=== PATIENT | female | born 2000 | race Caucasian/White ===

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

== ENCOUNTER 2022-05-14 08:55 | Inpatient (IN) ==
[2022-05-14] MEDS ORDERED: LIDOCAINE 1% LOCAL 20 ML VIAL INFIL PRN (10:55)
[2022-05-14] MEDS ORDERED: OXYTOCIN 30 UNITS/500 ML BAG IV PRN ×2 (10:55→23:28)
--- NOTE | 2022-05-14 11:07 | History & Physical Report ---
Date of Service May 14, 2022 Assessment & Plan (1) : (2) Elevated blood pressure affecting , antepartum: Plan 22 yo g1 at 39 2/7 wga presents in early labor Mildly elevated BPs noted, pt is asymptomatic. Will get labs Fetus cat 1 Labor - manage expectantly GBS neg Epidural PRN History of Present Illness Chief Complaint: Contractions Primary Care Provider: Javed Wagner 22 yo G1 at 39 2/7 wga presents w/ ctx increasing in frequency and intensity. +FM; denies LOF, VB. Had some bloody show earlier this AM. Initially checked around 930 and was 3/70/-2, now progressed to 4cm. PNI: Ectopic atrial tachy s/p cardiology consult, no acute intervention stable abnormal echo - needs echo before d/c G1 regular cycles denies hx STIs Allergies Allergy/AdvReac Type Severity Reaction Status Date / Time amoxicillin Allergy Unknown RASH Verified 05/14/22 09:06 cephalexin Allergy Unknown HIVES/RASH Verified 05/14/22 09:06 nystatin Allergy Unknown HIVES/RASH Verified 05/14/22 09:06 TYLENOL WITH CODEINE Allergy Unknown HIVES/RASH Uncoded 05/14/22 09:06 Home Medications Medication Instructions Recorded Confirmed Type prenat.vits,beverley,chn-wufc-yddzp 1 tab PO DAILY 10/27/21 05/14/22 History ferrous sulfate 325 mg (65 mg 325 mg PO DAILY 05/14/22 05/14/22 History iron) tablet Patient History Medical History (Updated 05/14/22 @ 11:05 by Kiana Solis MD) Atrial ectopic tachycardia Family History (Updated 10/27/21 @ 11:15 by Dina Wang) Aunt Diabetes Ovarian cancer Mother Lymphoma Grandfather Cancer Other Dyslipidemia Social History (Updated 10/27/21 @ 11:07 by Dina Wang) Smoking Status: Never smoker Hx Alcohol Use: No Hx Substance Use: No Preferred Language: Kosovan Communication Ability: Effective Education Rn Required: No Beliefs That Will Affect Care: None marital status: Single marital status details: no contact Current Living Situation: Alone Current Living Situation Comment: lives alone, 2 dogs, 2 cats, someone changes litter for pt current occupational status: unemployed Feels Safe at Home: Yes Assistive Devices: None Physical Exam Genitourinary: OB Exam Abdomen: + vertex and + estimated weight (7-8) Manual OB Exam: + cervical dilation 4 cm, + cervical effacement 70% and + station -2 OB Exam Monitor Tracing: + external FHT monitor used, + external uterine monitor used (q4-5) and + category I (120/mod/+accel/-decel) Results & Data ([facility]) Vital Signs (Past 12 Hours) Vital Signs Temp Pulse Resp BP 05/14/22 10:55 87 05/14/22 10:55 139/100 05/14/22 09:53 90 05/14/22 09:53 133/93 05/14/22 09:22 103 H 05/14/22 09:22 139/92 05/14/22 09:13 107 H 05/14/22 09:13 137/97 05/14/22 09:01 20 05/14/22 09:01 98.2 F 20 05/14/22 09:02 98 H 142/92 H Laboratory Results OB Labs: Blood Type A Positive 11/02/21 Antibody Screen NEGATIVE 11/02/21 Hemoglobin 10.5 g/dl (12.0-16.0) L 04/17/22 Hematocrit 31.5 % (34.1-44.9) L 04/17/22 Mean Corpuscular Volume 83.8 fL (80.0-100.0) 04/17/22 Platelet Count 138 K/uL (130-400) 04/17/22 Rubella IgG Antibody Immune (Immune) 11/02/21 Rapid Plasma Reagin Nonreactive (Nonreactive) 02/24/22 Hepatitis B Surface Antigen. NON-REACTIVE (NON-REACTIVE) 11/02/21 Hepatitis C Antibody (EIA) NON-REACTIVE (NON-REACTIVE) 11/02/21 HIV (1&2) Ag and Ab Confirmation NON-REACTIVE (NON-REACTIVE) 11/02/21 Glucose 1 Hour 50 gm Load 135 mg/dl (70-130) H 02/24/22 Maternal Serum Alpha Fetoprotein 32.2 ng/mL 11/30/21 OB Optional Labs: Chlamydia trachomatis RNA NOT DETECTED (NOT DETECTED) 11/02/21 Neisseria gonorrhoeae RNA NOT DETECTED (NOT DETECTED) 11/02/21 Alpha Fetoprotein Triple Screen SEE NOTE 11/30/21 low risk cfdna neg cf/sma GBS neg Diagnostic Findings Post/fundal plac Coding Level of Care Code None Diagnoses Z34.90 Elevated blood pressure affecting , antepartum O16.9
[2022-05-14 12:00] LABS: Hematocrit (blood only) 35.1 % (37.0-47.0); Hemoglobin 12.2 g/dl (12.0-16.0); Mean Corpuscular Hemoglobin 28.6 pg (25.0-34.0); Mean Corpuscular Hgb Conc 34.8 g/dL (32.0-36.0); Mean Corpuscular Volume 82.4 fL (80.0-100.0); Mean Platelet Volume 12.1 fL (9.4-12.4); Platelet Count 124 K/uL (130-400); RDW Coefficient of Variation 16.6 % (11.5-14.5); RDW Standard Deviation 49.1 fL (36.4-46.3); Red Blood Count 4.26 M/uL (4.20-5.40); White Blood Count 11.82 K/ul (4.8-10.8)
[2022-05-14 12:59] LABS: Albumin Level 3.4 gm/dl (3.4-5.0); Anion Gap 9 (3-11); Bilirubin,Total 0.3 mg/dl (0.2-1.0); Carbon Dioxide 21 mmol/L (21-32); Chloride 107 mmol/L (98-107); Potassium 3.9 mmol/L (3.5-5.1); Sodium 137 mmol/L (136-145)
[2022-05-14 13:05] LABS: Alanine Aminotransferase 14 U/L (7-52); Albumin Globulin Ratio 1.3 (0.9-2); Alkaline Phosphatase 157 U/L (34-104); Aspartate Aminotransferase 16 U/L (13-39); BUN Creatinine Ratio 20.4 (10-20); Blood Urea Nitrogen 11 mg/dl (6-23); Creatinine Clr Calc Pharmacy 159.8 ml/min; Est GFR (African American) > 150.0 ml/min; Est GFR (Non-African American) 132.1 ml/min; Globulin 2.7 gm/dl (2.5-4.0); Glucose 69 mg/dl (70-99(Fasting)); Total Protein 6.1 gm/dl (6.0-8.3)
[2022-05-14] MEDS: LACTATED RINGER'S 1,000 ML IV PRN ×3 (13:22→22:28)
--- NOTE | 2022-05-14 13:26 | Labor Progress Brief Note ---
Date of Service May 14, 2022 Subjective contractions more painful Assessment & Plan (1) : (2) Elevated blood pressure affecting , antepartum: Plan 22 yo g1 at 39 2/7 wga admitted in labor Mildly elevated BPs improved, last normotensive. Labs still pending due to issue w/ lab system but results thus far reassuring Fetus cat 1 Labor - progress noted, offered arom and pt amenable, tolerated well. Continue to monitor GBS neg Epidural PRN Admission and Anticipated Discharge Date Admission Date: May 14, 2022 Physical Exam Genitourinary: Manual OB Exam: + cervical dilation (4-5), + cervical effacement 70%, + station -2 and + amniotic fluid (arom clear) OB Exam Monitor Tracing: + external FHT monitor used, + external uterine monitor used (q4-5) and + category I (120/mod/+accel/-decel) Results & Data ([facility]) Vital Signs (Past 12 Hours) Vital Signs Temp Pulse Resp BP 05/14/22 11:50 97.7 F 82 20 05/14/22 11:50 134/87 05/14/22 10:55 87 05/14/22 10:55 139/100 05/14/22 09:53 90 05/14/22 09:53 133/93 05/14/22 09:22 103 H 05/14/22 09:22 139/92 05/14/22 09:13 107 H 05/14/22 09:13 137/97 05/14/22 09:01 20 05/14/22 09:01 98.2 F 20 05/14/22 09:02 98 H 142/92 H Coding Level of Care Code None Diagnoses Z34.90 Elevated blood pressure affecting , antepartum O16.9
[2022-05-14] MEDS ORDERED: ePHEDrine sulfate 50 MG/ML AMP ONE (13:30)
[2022-05-14] MEDS ORDERED: fentaNYL citrate 100 MCG/2 ML VIAL ONE (13:30)
[2022-05-14] MEDS ORDERED: SODIUM CHLORIDE 0.9% INJ 10 ML VIAL ONE (13:31)
[2022-05-14] MEDS ORDERED: fentaNYL 2MCG/ML ROPIVACAINE 1.25MG/ML 100 ML BAG EPI ONE (13:31)
[2022-05-14] MEDS ORDERED: LIDOCAINE 2%/EPINEPHRINE 1:200,000 20 ML SDV ONE (13:31)
[2022-05-14] MEDS ORDERED: BUPIVACAINE 0.25% 30 ML VIAL ONE (13:31)
[2022-05-14 13:45] LABS: Total Protein Urine Random 13.6 mg/dl (0-11.9)
[2022-05-14] MEDS ORDERED: PROMETHAZINE HCL 25 MG in SODIUM CHLORIDE 0.9% 50 ML IV PRN (13:46)
[2022-05-14] MEDS ORDERED: METOCLOPRAMIDE HCL 20 MG in SODIUM CHLORIDE 0.9% 50 ML IV PRN (13:46)
[2022-05-14] MEDS ORDERED: NALBUPHINE HCL INJ 10 MG/ML AMP IV PRN (13:46)
[2022-05-14] MEDS ORDERED: ePHEDrine sulfate 50 MG/ML AMP IV PRN (13:46)
[2022-05-14] MEDS ORDERED: ONDANSETRON INJ 2 MG/ML 2 ML VIAL IV PRN (13:46)
[2022-05-14] MEDS ORDERED: NALOXONE HCL 1 MG in SODIUM CHLORIDE 0.9% 1000ML 1,000 ML IV PRN (13:46)
[2022-05-14] MEDS ORDERED: diphenhydrAMINE 50 MG/ML VIAL IV PRN (13:46)
[2022-05-14] MEDS ORDERED: NALOXONE HCL 0.4 MG/1 ML VIAL/CARP IV PRN (13:46)
[2022-05-14] MEDS ORDERED: fentaNYL 2MCG/ML ROPIVACAINE 1.25MG/ML 100 ML BAG EPI PRN (13:46)
--- NOTE | 2022-05-14 13:46 | Anesthesiology Consultation ---
Date of Service May 14, 2022 Assessment & Plan Chart Review Chart Review: Acceptable Risk for Labor Epidural Consults Requested none ASA ASA2 Proposed Anesthesia Anesthesia Type: Labor Epidural Risk / Benefits Reviewed With: PT / POA / Parent / Guardian, Accepts Plan and Informed Consent Obtained History Height/Weight Height: 5 ft 3 in Weight: 78.925 kg Allergies Allergy/AdvReac Type Severity Reaction Status Date / Time amoxicillin Allergy Unknown RASH Verified 05/14/22 09:06 cephalexin Allergy Unknown HIVES/RASH Verified 05/14/22 09:06 nystatin Allergy Unknown HIVES/RASH Verified 05/14/22 09:06 TYLENOL WITH CODEINE Allergy Unknown HIVES/RASH Uncoded 05/14/22 09:06 Medications Home Medications Medication Instructions Recorded Confirmed Last Taken prenat.vits,beverley,pza-yizr-qqerw 1 tab PO DAILY 10/27/21 05/14/22 05/13/22 18:00 ferrous sulfate 325 mg (65 mg 325 mg PO DAILY 05/14/22 05/14/22 05/13/22 18:00 iron) tablet Active Medications Generic Name Dose Route Start Last Admin Trade Name Freq PRN Reason Stop Dose Admin Lactated Ringer's 1,000 mls @ 125 mls/hr 05/14/22 10:55 05/14/22 13:22 Lr IV 05/16/22 10:54 999 mls/hr .Q8H PRN Administration L&D Protocol Protocol NPO Date Last Intake of Fluids: 05/14/22 Time Last Intake of Fluids: 12:30 Date Last Intake of Solids: 05/14/22 Time Last Intake of Solids: 07:30 Past Medical History Medical History Atrial ectopic tachycardia Exercise / Class Metabolic Activity II 4-5 Yardwork/Stairs/Walk up hill Past Family History Family History Aunt Ovarian cancer Diabetes Mother Lymphoma Hypertension Grandfather Cancer Father Hypertension Other Dyslipidemia Past Anesthesia History No Hx of Anesthesia Complications and No Family Hx of Anesthesia Complications History of PONV No Hx of PONV and No Hx of Motion Sickness Social History Smoking Status: Never smoker Hx Alcohol Use: No Hx Substance Use: No Physical Exam Vital Signs Last Vital Signs Temp 36.5 C 05/14/22 11:50 Pulse 82 05/14/22 11:50 Resp 20 05/14/22 11:50 BP 134/87 05/14/22 11:50 ENMT Mouth: no TMJ abnormality Thyromental Distance: > or= 3.5 Finger Breadths Mallampati Class: II Neck normal visual inspection and trachea midline; neck extension not limited Respiratory normal respiratory effort Auscultation: lungs clear to auscultation bilaterally Cardiovascular Rate/Rhythm: regular rate and regular rhythm Heart Sounds: no murmur Musculoskeletal Spine: normal cervical ROM Extremities: full ROM of extremities Neurologic moves all extremities Psychiatric Orientation: alert and oriented x 3 Testing Laboratory Results 05/14/22 11:38 05/14/22 11:38
[2022-05-14 13:51] LABS: Creatinine Urine Random 65.3 mg/dl; Protein Creatinine Ratio Urine 0.2 (0-0.2)
--- NOTE | 2022-05-14 17:08 | Labor Progress Brief Note ---
Date of Service May 14, 2022 Subjective Comfortable w/ epidural Assessment & Plan (1) : (2) Elevated blood pressure affecting , antepartum: Plan 22 yo g1 at 39 2/7 wga admitted in labor Mildly elevated BPs on admit but now normal, labs were wnl Fetus cat 1 Labor - good progress, continue expectant management GBS neg Epidural in place Admission and Anticipated Discharge Date Admission Date: May 14, 2022 Physical Exam Genitourinary: Manual OB Exam: + cervical dilation 7 cm, + cervical effacement 90% and + station 0 OB Exam Monitor Tracing: + external FHT monitor used, + external uterine monitor used (q3-5) and + category I (120/mod/+accel/-decel) Results & Data ([facility]) Vital Signs (Past 12 Hours) Vital Signs Temp Pulse Resp BP Pulse Ox 05/14/22 16:59 97.5 F L 16 05/14/22 16:02 98.6 F 20 05/14/22 17:05 99 05/14/22 17:05 76 05/14/22 17:00 100 05/14/22 17:00 69 05/14/22 17:01 82 05/14/22 17:01 132/82 05/14/22 16:55 100 05/14/22 16:55 82 05/14/22 16:50 100 05/14/22 16:50 71 05/14/22 16:45 100 05/14/22 16:45 72 05/14/22 16:44 72 05/14/22 16:44 111/67 05/14/22 16:40 100 05/14/22 16:40 68 05/14/22 16:35 100 05/14/22 16:35 63 05/14/22 16:30 100 05/14/22 16:30 77 05/14/22 16:29 60 05/14/22 16:29 20 115/68 05/14/22 16:25 100 05/14/22 16:25 72 05/14/22 16:20 100 05/14/22 16:20 70 05/14/22 16:15 100 05/14/22 16:15 80 05/14/22 16:15 93 H 05/14/22 16:15 112/68 05/14/22 16:10 100 05/14/22 16:10 76 05/14/22 16:05 99 05/14/22 16:05 75 05/14/22 16:00 98 05/14/22 16:00 65 05/14/22 16:00 106/64 05/14/22 15:55 98 05/14/22 15:55 71 05/14/22 15:50 99 05/14/22 15:50 69 05/14/22 15:45 98 05/14/22 15:45 97 H 05/14/22 15:44 84 05/14/22 15:44 121/72 05/14/22 15:40 98 05/14/22 15:40 82 05/14/22 15:35 98 05/14/22 15:35 82 05/14/22 15:31 81 05/14/22 15:31 119/73 05/14/22 15:30 97 05/14/22 15:30 78 05/14/22 15:25 96 05/14/22 15:25 73 05/14/22 15:20 95 05/14/22 15:20 76 05/14/22 15:15 98 05/14/22 15:15 74 05/14/22 15:14 82 05/14/22 15:14 113/75 05/14/22 15:10 97 05/14/22 15:10 75 05/14/22 15:05 97 05/14/22 15:05 75 05/14/22 15:01 85 05/14/22 15:01 98.1 F 16 123/77 05/14/22 15:00 98 05/14/22 15:00 78 05/14/22 14:55 97 05/14/22 14:55 76 05/14/22 14:50 97 05/14/22 14:50 74 05/14/22 14:45 98 05/14/22 14:45 85 05/14/22 14:44 79 05/14/22 14:44 127/77 05/14/22 14:40 98 05/14/22 14:40 79 05/14/22 14:35 99 05/14/22 14:35 87 05/14/22 14:30 98 05/14/22 14:30 84 05/14/22 14:31 84 05/14/22 14:31 16 124/78 05/14/22 14:25 98 05/14/22 14:25 90 05/14/22 14:20 98 05/14/22 14:20 85 05/14/22 14:15 98 05/14/22 14:15 79 05/14/22 14:14 83 05/14/22 14:14 131/88 05/14/22 14:12 81 05/14/22 14:12 130/83 05/14/22 14:10 98 05/14/22 14:10 90 05/14/22 14:10 90 05/14/22 14:10 122/79 05/14/22 14:08 85 05/14/22 14:08 132/87 05/14/22 14:05 99 05/14/22 14:05 90 05/14/22 14:05 138/89 05/14/22 14:04 90 05/14/22 14:04 135/83 05/14/22 14:00 100 05/14/22 14:00 96 H 05/14/22 13:48 102 H 05/14/22 13:48 98.2 F 20 153/97 H 05/14/22 11:50 97.7 F 82 20 05/14/22 11:50 134/87 05/14/22 10:55 87 05/14/22 10:55 139/100 05/14/22 09:53 90 05/14/22 09:53 133/93 05/14/22 09:22 103 H 05/14/22 09:22 139/92 05/14/22 09:13 107 H 05/14/22 09:13 137/97 05/14/22 09:01 20 05/14/22 09:01 98.2 F 20 05/14/22 09:02 98 H 142/92 H Coding Level of Care Code None Diagnoses Z34.90 Elevated blood pressure affecting , antepartum O16.9
--- NOTE | 2022-05-14 23:25 | Delivery Summary ---
Vaginal Delivery Summary Date of Service May 14, 2022 Vaginal Delivery Summary and 2nd Degree LAC PREOPERATIVE DIAGNOSIS: 1. Single intrauterine at 39 2/7 wga 2. Labor 3. Abnormal echo POSTOPERATIVE DIAGNOSIS: 1. Single intrauterine at 39 2/7 wga 2. Labor 3. Abnormal echo 4. Delivered PROCEDURE: 1. Normal spontaneous vaginal delivery. SURGEON: Kiana Solis MD ANESTHESIA: Epidural. ESTIMATED BLOOD LOSS: 300 mL FLUIDS: Continuous LR. URINE OUTPUT: None. COMPLICATIONS: None. CONDITION: Stable. INDICATIONS: 22 yo G1 at 39 2/7 wga presented to L&D with contractions increasing in frequency and intensity. She was initially 3cm and progressed to 4cm and was admitted. She underwent AROM and received an epidural for pain control. She continued to progress spontaneously to complete and desired to push. FINDINGS: A viable male infant, weight pending with Apgars of 8 and 9 at 1 and 5 minutes respectively. SPECIMEN: Cord blood OPERATIVE REPORT: The patient progressed to 10 cm, 100% effaced and +2 station, pushed over intact perineum with anesthesia to deliver a viable male infant, weight and Apgars as above. Head of delivered in DIANE position. Loose nuchal/body cord was noted and delivered through. Body and shoulders were delivered without difficulty. was delivered to maternal abdomen and nursing staff. Delayed cord clamping was performed for 60 seconds. Cord was clamped and cut. Cord blood was obtained. Placenta delivered spontaneously intact with 3-vessel cord. IV oxytocin and fundal massage were given for excellent hemostasis. Vagina, cervix, perineum, and placenta were inspected. A second degree laceration was noted and repaired using 3-0 vicryl and there was excellent hemostasis. Sponge and needle counts correct x2. No sponges were left behind. Mother and stable in immediate period. [facility] [place] Vaginal Delivery Charge Vaginal Delivery Codes: 97603 global code for the antepartum, delivery, and post- Delivery Type Details: and 2nd Degree LAC
[2022-05-14] MEDS ORDERED: ACETAMINOPHEN 325 MG TAB PO PRN (23:28)
[2022-05-14] MEDS ORDERED: DIPHTHERIA/TETANUS/PERTUSSIS 0.5mL SYR/VIAL (Age 7+yrs) IM ONE (23:28)
[2022-05-14] MEDS ORDERED: HYDROCORTISONE ACETATE 25 MG SUPP PR PRN (23:28)
[2022-05-14] MEDS ORDERED: BENZOCAINE 20% AER SPR 82.5 GM CAN EXT PRN (23:28)
[2022-05-15] MEDS: IBUPROFEN 600 MG TAB PO PRN ×4 (01:15→19:54)
[2022-05-15] MEDS: DOCUSATE SODIUM 100 MG CAP PO SCH ×2 (07:36→19:53)
[2022-05-15] MEDS: PRENATAL VITAMIN 1 TAB PO SCH (07:36)
[2022-05-15] MEDS: FERROUS SULFATE 325 MG TAB PO SCH (07:36)
--- NOTE | 2022-05-15 07:51 | Obstetrical Progress Note ---
Date of Service May 15, 2022 Assessment & Plan (1) : 22 yo PP1 from , doing well -Meeting all pp milestones -A+/rubella immune/ -f/u 6 weeks for appt, continue routine pp care Subjective Ambulation: ambulating normally Voiding: no voiding problems Passing Gas:: Yes Diet Tolerance:: regular diet Lochia:: Small Feeding Type:: breast feeding Pain well managed with medication Review of Systems Denies fevers, chills, n/v, RETANA, CP, SOB Physical Exam Constitutional WD/WN, vitals as above no acute distress Respiratory normal respiratory effort, lungs clear to auscultation Cardiovascular RRR, no murmur, no edema Gastrointestinal (Abdomen) Percussion/Palpation: abdomen soft; abdomen nontender fundus firm at umbilicus and NT Musculoskeletal BLE symmetric, nonerythematous, nontender Results & Data ([facility]) Vital Signs (Past 12 Hours) Vital Signs Temp Pulse Pulse Resp BP BP Pulse Ox 05/15/22 07:36 97.3 F L 58 L 18 105/64 97 05/15/22 05:23 98.1 F 72 18 117/68 05/15/22 02:00 98.1 F 20 128/64 05/15/22 01:15 99 H 18 132/79 05/15/22 00:45 100 H 20 130/84 05/15/22 00:15 96 H 20 117/72 05/15/22 00:00 93 H 20 125/86 05/14/22 23:45 103 H 18 124/85 05/14/22 23:30 103 H 18 124/85 05/14/22 23:15 103 H 18 124/85 05/14/22 23:15 98.8 F 20 05/15/22 01:14 99 H 132/79 05/15/22 00:59 85 118/77 05/15/22 00:44 100 H 130/84 05/15/22 00:29 91 H 116/85 05/15/22 00:14 96 H 117/72 05/14/22 23:59 93 H 05/14/22 23:59 125/86 05/14/22 23:44 93 H 05/14/22 23:44 123/80 05/14/22 23:29 103 H 05/14/22 23:29 124/85 01/28/23 23:15 99 05/14/22 23:15 99 H 05/14/22 23:14 96 H 05/14/22 23:14 119/77 05/14/22 23:10 98 05/14/22 23:10 98 H 05/14/22 23:02 18 05/14/22 23:02 18 05/14/22 23:05 98 05/14/22 23:05 115 H 05/14/22 23:00 99 05/14/22 23:00 114 H 05/14/22 22:55 99 05/14/22 22:55 100 H 05/14/22 22:50 95 05/14/22 22:50 123 H 05/14/22 22:48 85 L 05/14/22 22:48 125 H 05/14/22 22:45 100 05/14/22 22:45 115 H 05/14/22 22:44 116 H 05/14/22 22:44 132/78 05/14/22 22:40 100 05/14/22 22:40 81 05/14/22 22:35 99 05/14/22 22:35 94 H 05/14/22 22:32 85 L 05/14/22 22:32 100 H 05/14/22 22:30 100 05/14/22 22:30 94 H 05/14/22 22:30 114/67 05/14/22 22:26 100 H 05/14/22 22:26 120/72 05/14/22 22:25 93 05/14/22 22:25 122 H 05/14/22 22:20 99 05/14/22 22:20 121 H 05/14/22 22:16 117 H 05/14/22 22:16 126/84 05/14/22 22:15 100 05/14/22 22:15 122 H 05/14/22 22:10 100 05/14/22 22:10 116 H 05/14/22 22:05 100 05/14/22 22:05 78 05/14/22 22:00 18 05/14/22 22:00 18 05/14/22 22:00 99 05/14/22 22:00 75 05/14/22 21:55 99 05/14/22 21:55 89 05/14/22 21:50 100 05/14/22 21:50 77 05/14/22 21:45 100 05/14/22 21:45 73 05/14/22 21:44 74 05/14/22 21:44 120/85 05/14/22 21:40 100 05/14/22 21:40 73 05/14/22 21:35 100 05/14/22 21:35 72 05/14/22 21:30 18 05/14/22 21:30 18 05/14/22 21:30 100 05/14/22 21:30 83 05/14/22 21:30 125/84 05/14/22 21:25 100 05/14/22 21:25 71 05/14/22 21:20 100 05/14/22 21:20 66 05/14/22 21:15 100 05/14/22 21:15 77 05/14/22 21:15 124/80 05/14/22 21:00 18 05/14/22 21:00 98.1 F 18 05/14/22 21:10 100 05/14/22 21:10 102 H 05/14/22 21:05 100 05/14/22 21:05 99 H 05/14/22 21:00 100 05/14/22 21:00 84 05/14/22 20:59 83 05/14/22 20:59 114/72 05/14/22 20:55 100 05/14/22 20:55 69 05/14/22 20:50 100 05/14/22 20:50 70 05/14/22 20:45 100 05/14/22 20:45 69 05/14/22 20:44 76 05/14/22 20:44 116/76 05/14/22 20:40 100 05/14/22 20:40 71 05/14/22 20:35 100 05/14/22 20:35 79 05/14/22 20:30 18 05/14/22 20:30 18 05/14/22 20:30 100 05/14/22 20:30 74 05/14/22 20:29 71 05/14/22 20:29 115/68 05/14/22 20:25 100 05/14/22 20:25 67 05/14/22 20:20 100 05/14/22 20:20 77 05/14/22 20:00 18 05/14/22 20:00 18 05/14/22 20:15 100 05/14/22 20:15 75 05/14/22 20:14 104 H 05/14/22 20:14 115/72 05/14/22 20:10 100 05/14/22 20:10 103 H 05/14/22 20:05 100 05/14/22 20:05 89 05/14/22 20:00 100 05/14/22 20:00 93 H 05/14/22 19:59 79 05/14/22 19:59 126/86 05/14/22 19:55 100 05/14/22 19:55 78 05/14/22 19:50 100 05/14/22 19:50 82 O2 Del Method 05/15/22 07:36 Room Air 05/15/22 05:23 05/15/22 02:00 05/15/22 01:15 05/15/22 00:45 05/15/22 00:15 05/15/22 00:00 05/14/22 23:45 05/14/22 23:30 05/14/22 23:15 05/14/22 23:15 05/15/22 01:14 05/15/22 00:59 05/15/22 00:44 05/15/22 00:29 05/15/22 00:14 05/14/22 23:59 05/14/22 23:59 05/14/22 23:44 05/14/22 23:44 05/14/22 23:29 05/14/22 23:29 05/14/22 23:15 05/14/22 23:15 05/14/22 23:14 05/14/22 23:14 05/14/22 23:10 05/14/22 23:10 05/14/22 23:02 05/14/22 23:02 05/14/22 23:05 05/14/22 23:05 05/14/22 23:00 05/14/22 23:00 05/14/22 22:55 05/14/22 22:55 05/14/22 22:50 05/14/22 22:50 05/14/22 22:48 05/14/22 22:48 05/14/22 22:45 05/14/22 22:45 05/14/22 22:44 05/14/22 22:44 05/14/22 22:40 05/14/22 22:40 05/14/22 22:35 05/14/22 22:35 05/14/22 22:32 05/14/22 22:32 05/14/22 22:30 05/14/22 22:30 05/14/22 22:30 05/14/22 22:26 05/14/22 22:26 05/14/22 22:25 05/14/22 22:25 05/14/22 22:20 05/14/22 22:20 05/14/22 22:16 05/14/22 22:16 05/14/22 22:15 05/14/22 22:15 05/14/22 22:10 05/14/22 22:10 05/14/22 22:05 05/14/22 22:05 05/14/22 22:00 05/14/22 22:00 05/14/22 22:00 05/14/22 22:00 05/14/22 21:55 05/14/22 21:55 05/14/22 21:50 05/14/22 21:50 05/14/22 21:45 05/14/22 21:45 05/14/22 21:44 05/14/22 21:44 05/14/22 21:40 05/14/22 21:40 05/14/22 21:35 05/14/22 21:35 05/14/22 21:30 05/14/22 21:30 05/14/22 21:30 05/14/22 21:30 05/14/22 21:30 05/14/22 21:25 05/14/22 21:25 05/14/22 21:20 05/14/22 21:20 05/14/22 21:15 05/14/22 21:15 05/14/22 21:15 05/14/22 21:00 05/14/22 21:00 05/14/22 21:10 05/14/22 21:10 05/14/22 21:05 05/14/22 21:05 05/14/22 21:00 05/14/22 21:00 05/14/22 20:59 05/14/22 20:59 05/14/22 20:55 05/14/22 20:55 05/14/22 20:50 05/14/22 20:50 05/14/22 20:45 05/14/22 20:45 05/14/22 20:44 05/14/22 20:44 05/14/22 20:40 05/14/22 20:40 05/14/22 20:35 05/14/22 20:35 05/14/22 20:30 05/14/22 20:30 05/14/22 20:30 05/14/22 20:30 05/14/22 20:29 05/14/22 20:29 05/14/22 20:25 05/14/22 20:25 05/14/22 20:20 05/14/22 20:20 05/14/22 20:00 05/14/22 20:00 05/14/22 20:15 05/14/22 20:15 05/14/22 20:14 05/14/22 20:14 05/14/22 20:10 05/14/22 20:10 05/14/22 20:05 05/14/22 20:05 05/14/22 20:00 05/14/22 20:00 05/14/22 19:59 05/14/22 19:59 05/14/22 19:55 05/14/22 19:55 05/14/22 19:50 05/14/22 19:50
--- NOTE | 2022-05-15 08:21 | Anesthesia Procedure Note ---
Date of Service May 15, 2022 Anesthesia Post Epidural Note Vital Signs Vital Signs: Temp Pulse Resp BP Pulse Ox O2 Del Method 36.3 C L 58 L 18 105/64 97 05/15/22 07:36 05/15/22 07:36 05/15/22 07:36 05/15/22 07:36 05/15/22 07:36 05/15/22 07:36 Pain Intensity Abdomen: Pain Intensity: 1 Notes Mental Status: alert / awake / arousable and participated in evaluation Nausea / Vomiting: adequately controlled Pain: adequately controlled Airway Patency, RR, SpO2: stable & adequate BP & HR: stable & adequate Hydration State: stable & adequate Neuraxial Anesthesia: was administered and sensory block resolved Anesthetic Complications: no major complications apparent and Pt Satisfied with anesthetic care Epidural: Removed without complications and With tip intact
[2022-05-15] MEDS ORDERED: bisacodyL 5 MG TABEC PO SCH (20:00)
[2022-05-16] MEDS ORDERED: bisacodyL 10 MG SUPP PR PRN
[2022-05-16] MEDS: IBUPROFEN 600 MG TAB PO PRN ×2 (03:41→08:17)
--- NOTE | 2022-05-16 05:45 | Obstetrical Progress Note ---
Date of Service <Lilianetory MeredithDO - Last Filed: 05/16/22 06:54> May 16, 2022 Assessment & Plan <Liliane MeredithDO - Last Filed: 05/16/22 06:54> (1) Status post vaginal delivery: continue OOB, ambulation, diet as tolerated <Kiana Solis MD - Last Filed: 05/16/22 07:07> (1) Status post vaginal delivery: Subjective <Liliane MeredithDO - Last Filed: 05/16/22 06:54> Bhumi is a 22 y/o female who is now PPD # 1 following spontaneous vaginal delivery at 39 2/7 weeks. Reports feeling well overall this morning. Mild abdominal cramping pain well managed on analgesics. Voiding. Tolerating meals overnight and able to ambulate some. Some persistent lochia with some improvement this morning. Breast feeding. Review of Systems Denies fever, chills, sweats Denies shortness of breath, difficulty breathing, chest pain, palpitations, chest pressure. Denies breast pain. Denies dysuria. Denies headache or changes in vision. Physical Exam <Lilianetory MeredithDO - Last Filed: 05/16/22 06:54> General: Alert, oriented. No acute distress. Cardiac: Regular rate and rhythm, no murmurs/rubs/gallops. Respiratory: Clear to auscultation bilaterally a/p, no wheezes/rales/rhonchi. No increased work of breathing. Symmetrical chest rise. No respiratory distress. Abdomen: Soft, nontender, nondistended. Uterus: Uterine fundus firm, palpable at umbilicus. Lower Extremities: No lower extremity edema or swelling. Results & Data ([facility]) <Liliane SNegar MasoudDO - Last Filed: 05/16/22 06:54> Vital Signs (Past 12 Hours) Vital Signs Temp Pulse Resp BP Pulse Ox O2 Del Method 05/15/22 23:20 36.3 C L 83 18 136/79 97 Room Air 05/15/22 19:45 36.3 C L 81 18 132/82 <Kiana Solis MD - Last Filed: 05/16/22 07:07> Co-Signing Physician Notes Resident Physician Supervision Note: I interviewed and examined the patient. Discussed with Dr. Meredith and agree with findings and plan as documented in the note. Any exceptions or clarifications are listed here: PP2 s/p , doing well. VSS, exam benign and wnl. Stable for d/c home today Documented By: Kiana Solis MD Resident Activity Tracking <Liliane Meredith, DO - Last Filed: 05/16/22 06:54> Resident Involvement: Resident Care Provided Care Provided: OB Delivery (post )
[2022-05-16] MEDS: FERROUS SULFATE 325 MG TAB PO SCH (08:17)
[2022-05-16] MEDS: PRENATAL VITAMIN 1 TAB PO SCH (08:17)
[2022-05-16] MEDS: DOCUSATE SODIUM 100 MG CAP PO SCH (08:17)
== END 2022-05-16 13:00 | disposition home or self-care (01) | DRG 807 ==
LOC: OPB 08:55 → 4S1 08:58 → 4E2 05-15 01:47

== ENCOUNTER 2022-05-24 16:24 | Observation (INO) ==
[2022-05-24] MEDS ORDERED: ACETAMINOPHEN 500 MG TAB PO PRN (17:18)
[2022-05-24 17:42] LABS: Basophils # (auto) 0.08 K/uL (0-0.2); Basophils % (auto) 0.9 %; Eosinophils # (auto) 0.12 K/uL (0-0.50); Eosinophils % (auto) 1.4 %; Hemoglobin 13.1 g/dl (12.0-16.0); Immature Granulocytes # (auto) 0.04 K/uL (0.01-0.20); Immature Granulocytes % (auto) 0.5 %; Lymphocytes # (auto) 1.31 K/uL (1.2-3.4); Mean Corpuscular Hemoglobin 28.4 pg (25.0-34.0); Mean Corpuscular Hgb Conc 33.6 g/dL (32.0-36.0); Mean Corpuscular Volume 84.6 fL (80.0-100.0); Mean Platelet Volume 10.1 fL (9.4-12.4); Monocytes # (auto) 0.36 K/uL (0.11-0.59); Monocytes % (auto) 4.1 %; Neutrophils % (auto) 78.1 %; Platelet Count 216 K/uL (130-400); RDW Coefficient of Variation 16.3 % (11.5-14.5); RDW Standard Deviation 50.1 fL (36.4-46.3); Red Blood Count 4.61 M/uL (4.20-5.40); White Blood Count 8.71 K/ul (4.8-10.8)
[2022-05-24 17:58] LABS: Alanine Aminotransferase 22 U/L (7-52); Albumin Globulin Ratio 1.2 (0.9-2); Albumin Level 3.9 gm/dl (3.4-5.0); Alkaline Phosphatase 109 U/L (34-104); Anion Gap 7 (3-11); Aspartate Aminotransferase 16 U/L (13-39); Bilirubin,Total 0.4 mg/dl (0.2-1.0); Blood Urea Nitrogen 19 mg/dl (6-23); Calcium 10.4 mg/dl (8.5-10.1); Carbon Dioxide 25 mmol/L (21-32); Chloride 109 mmol/L (98-107); Est GFR (African American) 133.6 ml/min; Est GFR (Non-African American) 115.3 ml/min; Globulin 3.2 gm/dl (2.5-4.0); Glucose 77 mg/dl (70-99(Fasting)); Potassium 4.1 mmol/L (3.5-5.1); Sodium 141 mmol/L (136-145); Total Protein 7.1 gm/dl (6.0-8.3)
[2022-05-24] MEDS: IBUPROFEN 800 MG TAB PO PRN (18:41)
[2022-05-24] MEDS ORDERED: MAG SULFATE 4GM BOLUS FROM BAG IV ONE (18:43)
--- NOTE | 2022-05-24 18:48 | History & Physical Report ---
Date of Service May 24, 2022 Assessment & Plan (1) Preeclampsia in period: Plan: Given patient's continued complaint of headache and elevated blood pressures, I recommended to her that she be admitted for 24h of magnesium therapy and continued monitoring. Patient and her mother are agreeable with this plan- they have been very concerned about these symptoms. Will monitor blood pressures closely, she is aware she might need further blood pressure medications if BPs are severe-range. She is aware of magnesium protocol - will place EPCs, suero catheter. Stay in bed, clear liquid diet. Will check labs Q6h. OK for tylenol and ibuprofen for headache. History of Present Illness Chief Complaint: elevated BP, headache Primary Care Provider: Javed Wagner 22yo PPD#10 s/p presented back to [facility] with complaint of headache and elevated BP. Was seen by her PCP yesterday, diagnosed with elevated BPs, and was directed to ER last night. She was evaluated in ER last night, had normal preeclampsia labs, was given IV labetalol for elevated BP, and discharged home with a prescription for PO labetalol and close followup in office in 2-3 days. She did not have the opportunity to fill the prescription for the PO labetalol today. She then contacted our office today with concerns about continuing headache and concerns that her blood pressure may be elevated again. She was directed to the hospital. She declined being seen in the emergency department to rule out other potential causes for her headache, stating that she knows it is related to her blood pressure because this headache was relieved when she was given IV labetalol in the ER last night. Last took tylenol for headache at 8am this morning. . Reporting headache that started as one-sided, and now has spread across her forehead. Some blurry vision. No RUQ pain. No lower extremity swelling. Allergies Allergy/AdvReac Type Severity Reaction Status Date / Time acetaminophen Allergy Unknown Hives/Rash Verified 05/14/22 23:37 [From Tylenol-Codeine #3] amoxicillin Allergy Unknown RASH Verified 05/14/22 09:06 cephalexin Allergy Unknown HIVES/RASH Verified 05/14/22 09:06 codeine Allergy Unknown Hives/Rash Verified 05/14/22 23:37 [From Tylenol-Codeine #3] nystatin Allergy Unknown HIVES/RASH Verified 05/14/22 09:06 Home Medications Medication Instructions Recorded Confirmed Type prenat.vits,beverley,ueb-alni-cpgah 1 tab PO DAILY 10/27/21 05/24/22 History ferrous sulfate 325 mg (65 mg 325 mg PO DAILY 05/14/22 05/24/22 History iron) tablet labetalol 100 mg tablet 100 mg PO BID #60 tabs 05/23/22 Rx Patient History Medical History Atrial ectopic tachycardia Surgical History (Updated 05/18/22 @ 00:11 by Jesus Amaro) Status post vaginal delivery Family History Aunt Ovarian cancer Diabetes Mother Lymphoma Hypertension Grandfather Cancer Father Hypertension Other Dyslipidemia Social History (Updated 10/27/21 @ 11:07 by Dina Wang) Smoking Status: Never smoker Hx Alcohol Use: No Hx Substance Use: No Preferred Language: Armenian Communication Ability: Effective Fast Food Cook Required: No Beliefs That Will Affect Care: None marital status: Single marital status details: no contact Current Living Situation: Alone Current Living Situation Comment: lives alone, 2 dogs, 2 cats, someone changes litter for pt current occupational status: unemployed Feels Safe at Home: Yes Assistive Devices: None Physical Exam Physical Exam: Constitutional: alert, in no acute distress, able to communicate effectively Skin: normal skin color and pigmentation Neck: the appearance of the neck was normal, no neck mass was observed Pulmonary: no respiratory distress, normal respiratory rhythm and effort Cardiovascular: heart rate and rhythm were normal Abdomen: soft, non-tender, no abdominal mass palpated. Fundus firm, below umbilicus. Neurological: The patient was oriented to person, place, and time. Mood and affect were appropriate. Extremities: No edema, no calf tenderness. DTR 1+ Results & Data ([facility]) Vital Signs (Past 12 Hours) Vital Signs Pulse BP 05/24/22 18:46 112 H 131/86 05/24/22 18:31 105 H 142/91 H 05/24/22 18:16 93 H 150/95 H 05/24/22 18:01 100 H 149/105 H 05/24/22 17:47 80 134/98 05/24/22 17:31 85 129/83 05/24/22 17:18 99 H 132/82 05/24/22 17:16 90 133/93 05/24/22 17:01 102 H 131/88 05/24/22 16:46 99 H 127/85 05/24/22 16:31 106 H 128/94 Code Status & VTE Plan VTE Prophylaxis Plan VTE Prophylaxis will be ordered: No Coding Level of Care Code 26113 INT INP/OBS CARE 2/55MIN Diagnoses Preeclampsia in period O14.95
[2022-05-24] MEDS: LACTATED RINGER'S 1,000 ML IV SCH (19:06)
[2022-05-24] MEDS: MAGNESIUM SULFATE / WTR 40 GM/1,000 ML BAG IV SCH (19:10)
[2022-05-24] MEDS ORDERED: LIDOCAINE 2% JELLY 5 ML TUBE EXT ONE (19:32)
[2022-05-25 00:36] LABS: Hematocrit (blood only) 39.4 % (37.0-47.0); Hemoglobin 13.2 g/dl (12.0-16.0); Mean Corpuscular Hemoglobin 28.8 pg (25.0-34.0); Mean Corpuscular Hgb Conc 33.5 g/dL (32.0-36.0); Mean Platelet Volume 9.9 fL (9.4-12.4); Platelet Count 226 K/uL (130-400); RDW Coefficient of Variation 16.3 % (11.5-14.5); RDW Standard Deviation 50.4 fL (36.4-46.3); Red Blood Count 4.58 M/uL (4.20-5.40); White Blood Count 8.26 K/ul (4.8-10.8)
[2022-05-25 00:57] LABS: Alanine Aminotransferase 19 U/L (7-52); Albumin Globulin Ratio 1.2 (0.9-2); Albumin Level 3.6 gm/dl (3.4-5.0); Alkaline Phosphatase 106 U/L (34-104); Anion Gap 7 (3-11); Aspartate Aminotransferase 14 U/L (13-39); BUN Creatinine Ratio 22.9 (10-20); Bilirubin,Total 0.4 mg/dl (0.2-1.0); Blood Urea Nitrogen 16 mg/dl (6-23); Calcium 9.1 mg/dl (8.5-10.1); Carbon Dioxide 23 mmol/L (21-32); Chloride 107 mmol/L (98-107); Est GFR (African American) 140.5 ml/min; Est GFR (Non-African American) 121.3 ml/min; Globulin 3.1 gm/dl (2.5-4.0); Glucose 75 mg/dl (70-99(Fasting)); Potassium 4.1 mmol/L (3.5-5.1); Sodium 137 mmol/L (136-145); Total Protein 6.7 gm/dl (6.0-8.3)
[2022-05-25 06:23] LABS: Hematocrit (blood only) 40.5 % (37.0-47.0); Hemoglobin 13.5 g/dl (12.0-16.0); Mean Corpuscular Hemoglobin 28.4 pg (25.0-34.0); Mean Corpuscular Hgb Conc 33.3 g/dL (32.0-36.0); Mean Corpuscular Volume 85.3 fL (80.0-100.0); Mean Platelet Volume 10.2 fL (9.4-12.4); Platelet Count 203 K/uL (130-400); RDW Coefficient of Variation 16.3 % (11.5-14.5); RDW Standard Deviation 50.9 fL (36.4-46.3); Red Blood Count 4.75 M/uL (4.20-5.40); White Blood Count 7.32 K/ul (4.8-10.8)
[2022-05-25 06:31] LABS: Alanine Aminotransferase 20 U/L (7-52); Albumin Globulin Ratio 1.2 (0.9-2); Albumin Level 3.7 gm/dl (3.4-5.0); Alkaline Phosphatase 111 U/L (34-104); Anion Gap 4 (3-11); Aspartate Aminotransferase 14 U/L (13-39); BUN Creatinine Ratio 16.2 (10-20); Bilirubin,Total 0.4 mg/dl (0.2-1.0); Blood Urea Nitrogen 11 mg/dl (6-23); Calcium 8.6 mg/dl (8.5-10.1); Carbon Dioxide 27 mmol/L (21-32); Chloride 106 mmol/L (98-107); Est GFR (African American) 141.9 ml/min; Est GFR (Non-African American) 122.4 ml/min; Glucose 82 mg/dl (70-99(Fasting)); Magnesium Therapeutic L&D Only 6.8 mg/dL (4.0-8.0); Sodium 137 mmol/L (136-145); Total Protein 6.7 gm/dl (6.0-8.3)
[2022-05-25] MEDS: LACTATED RINGER'S 1,000 ML IV SCH (07:21)
--- NOTE | 2022-05-25 07:26 | Obstetrical Progress Note ---
Date of Service May 25, 2022 Subjective Pt is s/p 05/14, was readmitted yesterday for elevated BPs and headache. Doing well today, BPs wnl. Labs have been normal. Magnesium will be due to stop 7:10pm. Has not needed any treatment with medication for elevated BPs during this admission. . AAOx2, NAD Abd soft, NTTP, uterus firm Ext no edema, 1+DTR Will plan for likely DC home this afternoon after magnesium treatment is completed. Results & Data ([facility]) Vital Signs (Past 12 Hours) Vital Signs Temp Pulse Resp BP 05/25/22 06:10 18 05/25/22 05:10 18 05/25/22 04:10 20 05/25/22 03:10 16 05/25/22 02:10 16 05/25/22 01:10 20 05/25/22 00:10 36.4 C L 20 05/25/22 00:10 20 05/24/22 23:10 20 05/24/22 22:10 20 05/24/22 21:10 20 05/24/22 20:10 18 05/24/22 19:55 20 05/24/22 19:40 18 05/24/22 19:25 16 05/25/22 07:11 80 113/74 05/25/22 06:11 79 123/75 05/25/22 05:11 73 105/61 05/25/22 04:11 83 121/77 05/25/22 03:11 76 123/69 05/25/22 02:11 80 109/70 05/25/22 01:12 82 103/65 05/25/22 00:11 87 137/84 05/24/22 23:12 80 116/68 05/24/22 22:09 85 120/72 05/24/22 21:55 81 115/73 05/24/22 21:40 83 106/55 L 05/24/22 21:25 97 H 122/64 05/24/22 21:09 85 124/70 05/24/22 20:54 90 119/68 05/24/22 20:39 103 H 132/75 05/24/22 20:24 94 H 130/75 05/24/22 20:10 80 136/82 05/24/22 19:55 93 H 143/86 H 05/24/22 19:24 108 H 141/80 H PG Care Time/CCT Total # of Minutes Spent Total Time Spent with Patient: Total time spent is greater than 50% in coordination of care (as documented) at patient's floor/unit and/or counseling patient: Coding Level of Care Code None
[2022-05-25] MEDS: IBUPROFEN 800 MG TAB PO PRN (09:55)
[2022-05-25 12:02] LABS: Hemoglobin 13.7 g/dl (12.0-16.0); Mean Corpuscular Hemoglobin 28.1 pg (25.0-34.0); Mean Corpuscular Hgb Conc 33.4 g/dL (32.0-36.0); Mean Corpuscular Volume 84.2 fL (80.0-100.0); Mean Platelet Volume 9.9 fL (9.4-12.4); Platelet Count 214 K/uL (130-400); RDW Coefficient of Variation 16.3 % (11.5-14.5); RDW Standard Deviation 50.6 fL (36.4-46.3); Red Blood Count 4.87 M/uL (4.20-5.40); White Blood Count 7.81 K/ul (4.8-10.8)
[2022-05-25 12:15] LABS: Albumin Globulin Ratio 1.3 (0.9-2); BUN Creatinine Ratio 13.6 (10-20); Bilirubin,Total 0.6 mg/dl (0.2-1.0); Calcium 8.5 mg/dl (8.5-10.1); Creatinine Clr Calc Pharmacy 104.2 ml/min; Est GFR (African American) 117.8 ml/min; Est GFR (Non-African American) 101.7 ml/min; Magnesium Therapeutic L&D Only 7.5 mg/dL (4.0-8.0)
[2022-05-25] MEDS: MAGNESIUM SULFATE / WTR 40 GM/1,000 ML BAG IV SCH (13:41)
--- NOTE | 2022-05-26 05:25 | Obstetrical Progress Note ---
Date of Service May 26, 2022 Assessment & Plan (1) Preeclampsia in period: Plan: Patient met criteria for magnesium therapy with several hypertensive blood pressure values and unremitting headache. She was admitted and is now s/p 24 hours of magnesium therapy. She has subsequently demonstrated normotensive BP over many hours of unmedicated observation. I will discharge her to home this morning with plan for f/u in the office next week, with no need to take antihypertensive therapy at home in the meantime. If BP remains normal next week she can likely proceed directly to a 6wk routine PPX visit. Admission and Anticipated Discharge Date Admission Date: May 25, 2022 Subjective Patient seen and examined yesterday, over multiple visits at bedside, during which her mother was also present. She completed 24hr of magnesium therapy at 7pm and was offered the options of going home immediately with plan for oral meds as previously prescribed with f/u in office, or observation overnight off of all meds to determine whether oral labetalol was required prior to discharge. She elected to stay overnight. By the evening when magnesium was stopping, the patient felt well and was experiencing no PIH symptoms. She was voicing an appetite and was provided with a full dinner tray. She had continued to breastfeed her and was doing well from a mood standpoint. Results & Data ([facility]) Vital Signs (Past 12 Hours) Vital Signs Pulse Resp BP 05/25/22 19:45 18 05/25/22 19:45 18 05/25/22 19:00 20 05/25/22 18:00 18 05/26/22 04:09 115 H 115/88 05/26/22 03:04 65 109/62 05/26/22 02:04 82 124/78 05/26/22 01:04 76 115/73 05/26/22 00:04 73 98/56 L 05/25/22 23:04 85 108/63 05/25/22 22:04 91 H 123/81 05/25/22 21:04 95 H 123/81 05/25/22 20:19 93 H 119/82 05/25/22 20:11 95 H 126/91 05/25/22 19:11 103 H 129/72 05/25/22 18:11 117 H 132/75 PG Care Time/CCT Total # of Minutes Spent Total Time Spent with Patient: Total time spent is greater than 50% in coordination of care (as documented) at patient's floor/unit and/or counseling patient: Coding Level of Care Code None Diagnoses Preeclampsia in period O14.95
--- NOTE | 2022-05-26 07:27 | Communication Note ---
Date of Service: May 26, 2022 Patient counseled at bedside with Anusha KEITA, will be heading home this morning, aware of plan to use no labetalol PO and f/u in office next week for BP check. She currently denies RETANA, RUQ pain, vision changes, or edema.
--- NOTE | 2022-05-27 12:23 | Discharge Summary ---
Date of Service May 27, 2022 Admission HPI Per Admitting Provider 22yo PPD#10 s/p TANNER presented back to [facility] with complaint of headache and elevated BP. Was seen by her PCP yesterday, diagnosed with elevated BPs, and was directed to ER last night. She was evaluated in ER last night, had normal preeclampsia labs, was given IV labetalol for elevated BP, and discharged home with a prescription for PO labetalol and close followup in office in 2-3 days. She did not have the opportunity to fill the prescription for the PO labetalol today. She then contacted our office today with concerns about continuing headache and concerns that her blood pressure may be elevated again. She was directed to the hospital. She declined being seen in the emergency department to rule out other potential causes for her headache, stating that she knows it is related to her blood pressure because this headache was relieved when she was given IV labetalol in the ER last night. Last took tylenol for headache at 8am this morning. . Reporting headache that started as one-sided, and now has spread across her forehead. Some blurry vision. No RUQ pain. No lower extremity swelling. Hospital Course (1) Preeclampsia in period: Patient admitted for 24 hrs magnesium therapy. BP monitoring after magnesium was discontinued showed normotension, and she was advised to f/u in office in 1 week, with no need for antihypertensive medication in the interim. Coding Level of Care Code None Diagnoses Preeclampsia in period O14.95
== END 2022-05-26 08:25 | disposition home or self-care (01) | DRG 776 ==
LOC: OPB 16:24 → 4S1 16:26 → INTOOBSV 05-25 07:26